=== PATIENT | female | born 2000 | race Caucasian/White ===

== ENCOUNTER 2020-12-12 07:26 | Day surgery (SDC) | payer OTHER ==
[~2020-12-12] VITALS: Ht 152.4 cm; Wt 49.4 kg
[~2020-12-12 07:26] MED LIST: LR 1,000 ML IV ONE
[2020-12-12] MEDS ORDERED: dexameTHASONE 4 MG/ML 1ML VIAL (J1100 PER 1MG) IV ONE (08:00)
[2020-12-12] MEDS ORDERED: AMPICILLIN SOD/SULBACTAM SOD 3 GM in D5W MINI-BAG PLUS 100 ML IV ONE (08:00)
[2020-12-12] MEDS ORDERED: OXYMETAZOLINE 0.05% NASAL SPRAY (AFRIN) As Ordered ONE (08:05)
[2020-12-12] MEDS ORDERED: LIDOCAINE 2% W/ EPINEPHRINE 1.7 ML DENTAL INJ As Ordered ONE ×2 (08:05→09:16)
[2020-12-12] MEDS ORDERED: LIDOCAINE 2% 100MG/5ML SDV (FOR ANES.) As Ordered ONE (08:37)
[2020-12-12] MEDS ORDERED: ACETAMINOPHEN 1000MG 100ML IV BTL (OFIRMEV) (J0131 PER 10MG) As Ordered ONE (08:37)
[2020-12-12] MEDS ORDERED: propofoL 200 MG/20 ML VIAL As Ordered ONE (08:37)
[2020-12-12] MEDS ORDERED: ROCURONIUM BROMIDE 50 MG/5 ML VIAL As Ordered ONE (08:37)
[2020-12-12] MEDS ORDERED: ONDANSETRON 4MG/2ML VIAL As Ordered ONE (08:37)
[2020-12-12] MEDS ORDERED: SUGAMMADEX SODIUM 500 MG/5 ML VIAL (BRIDION) As Ordered ONE (08:37)
[2020-12-12] MEDS ORDERED: fentaNYL 100 MCG/2 ML INJECTION (J3010) As Ordered ONE (08:38)
[2020-12-12] MEDS ORDERED: MIDAZOLAM INJ 2MG/2ML VIAL (J2250 PER 1MG) As Ordered ONE (08:40)
[2020-12-12] MEDS ORDERED: fentaNYL 100 MCG/2 ML INJECTION (J3010) IV PRN (10:45)
[2020-12-12] MEDS ORDERED: LR 1,000 ML IV SCH (10:45)
[2020-12-12] MEDS ORDERED: oxyCODONE 5MG TAB PO PRN (10:45)
[2020-12-12] MEDS ORDERED: ONDANSETRON 4MG/2ML VIAL IV PRN (10:45)
[2020-12-12] MEDS ORDERED: LACRILUBE (AKWA TEARS) OPHTH OINT 3.5 GM As Ordered ONE (11:16)
--- NOTE | 2020-12-12 11:39 | RO ---
OPERATIVE NOTE DATE OF OPERATION: 12/12/2020 PREOPERATIVE DIAGNOSES: 1. Severe dental anxiety. 2. Grossly decayed and symptomatic teeth #1, 2, 15, 16 as well as full bony impacted teeth #17 and 32. POSTOPERATIVE DIAGNOSES: Status post: 1. Severe dental anxiety. 2. Grossly decayed and symptomatic teeth #1, 2, 15, 16 as well as fully bony impacted teeth #17 and 32. PROCEDURE PERFORMED: Surgical extraction of teeth #1, 2, 15, 16, 17 and 32. SURGEON: Des Jorge DMD, MD CHROME PLATER: ANESTHESIA: General endotracheal anesthesia via nasal JAZ. SPECIMEN: Teeth for gross only. INDICATIONS: Penny is a pleasant 20-year-old female referred to my office for the aforementioned extractions. She mentioned that she has severe dental anxiety and tells me that she wants to be unconscious for the procedure. I explained to the patient that I perform IV conscious sedation in the office and the only way to guarantee her to be unconscious during the procedure is to perform it under general anesthesia in OR setting and that is what she wants to have done. Therefore, all the risks, benefits and alternatives were explained to the patient and informed consent was obtained and signed as well as complete history and physical which was performed and is in the patient's chart. DESCRIPTION OF PROCEDURE: The patient was taken back to the operating room. She was laid supine on the operating room table. Ulnar nerve protectors were placed, noninvasive cardiac monitors were applied. At that point the patient underwent general anesthesia and was intubated with nasal JAZ. She was prepped and draped in usual sterile fashion. A time out procedure was performed to identify the patient, procedure and any other precautions. Moist throat pack was inserted in the patient's oropharynx followed by the administration of 2% Lidocaine with 1:100,000 Epinephrine as local infiltrations and blocks, we used 8 carpules in total. At this point a full thickness flap was raised in impacted sites #17 and 32 in hockey stick buccal extension fashion and extended into the sulcus of adjacent teeth, namely 18 and 31, into the papilla between the first and second molars on both sides. At this point a Surgitome was used to remove overlying bone on the crestal and bony areas of 17 and 32 until I was able to visualize the furcation of the teeth. The crowns were then sectioned buccal lingually two-thirds of the way to the lingual and a small elevator was used to section the teeth and the roots. All the fragments were removed in their entirety. The sockets were curetted and irrigated. Inferior alveolar nerve was not noted, lingual cortices were intact. Copious irrigation and curettage and insertion of one Gelfoam in each socket followed by the closure of the flap primarily with 3-0 chromic sutures. At this point attention was given to teeth #1, 2, 15 and 16. I attempted luxation with no luck. Therefore, a full thickness flap was raised in sites #1, 2, 15 and 16. Small buccal trough was made with Surgitome in sites #1, 2, 15 and 16. Elevator was then used to luxate the teeth, namely #1, 2, 15 and 16 without any incident and were removed with forceps. All the sockets were curetted and irrigated. No sinus exposure was noted. One Gelfoam was inserted into each socket and the flap was closed primarily with 3-0 chromic sutures. At this point the oral cavity was irrigated and suctioned. The throat pack was removed. The patient was awakened from general anesthesia and taken back to the PACU. COMPLICATIONS: None to mention at the time of surgery. ESTIMATED BLOOD LOSS: 10 mL. DRAINS: No drains placed.
[2020-12-12 11:50] VITALS: BP 123/74
== END 2020-12-12 12:04 | disposition home or self-care (01) ==
LOC: M SDC 07:26
PROVIDERS: ATTEND Dentist
DX: K01.1 Impacted teeth (principal); K02.9 Dental caries, unspecified; F17.218 Nicotine dependence, cigarettes, with other nicotine-induced disorders; F12.10 Cannabis abuse, uncomplicated
CPT/HCPCS: 81025; 88300; D7210; D7240; D9223; J0131; J1100; J2250; J2405; J3010